=== PATIENT | female | born 1960 | race Caucasian/White ===

== ENCOUNTER 2016-06-12 10:40 | Outpatient (CLI) | payer BC | END 2016-06-12 10:41 | disposition home or self-care (01) | LOC: NAVSJIPCSP 10:40 | PROVIDERS: ATTEND Internal Medicine | DX: E11.9 Type 2 diabetes mellitus without complications (principal); E78.5 Hyperlipidemia, unspecified; Z79.899 Other long term (current) drug therapy | CPT/HCPCS: 36415; 80061; 83036 ==

== ENCOUNTER 2016-09-05 08:23 | Outpatient (CLI) | payer BC ==
[2016-09-05 12:35] LABS: #Basophils 0.1 thou/uL (0.0-0.2); #Eosinphils 0.1 thou/uL (0.0-0.7); #Lymphocytes 2.9 thou/uL (1.20-3.40); #Monocytes 0.5 thou/uL (0.11-0.59); #Neutrophils 5.1 thou/uL (1.40-6.50); %Eosinophils 1.3 % (0.0-10.0); %Lymphocytes 33.6 % (21.0-51.0); %Monocytes 5.7 % (0.0-10.0); %Neutrophils 58.5 % (42.0-75.0); Hemoglobin 11.4 g/dL (12.0-16.0); Mean Corpuscular HGB CONC 32.4 g/dL (32.0-36.0); Mean Corpuscular Hemoglobin 26.3 pg (27.0-31.0); Mean Corpuscular Volume 81.1 fl (81.0-99.0); Mean Platelet Volume 6.5 fL (7.4-10.4); Platelet Count 280 thou/uL (130-400); RBC Distribution Width 13.4 % (11.5-14.5); Red Blood Cell (RBC) Count 4.33 mill/uL (4.20-5.40); White Blood Cell (WBC) Count 8.6 thou/uL (4.8-10.8)
[2016-09-05 12:58] LABS: ALT (SGPT) 22 U/L (0-55); AST (SGOT) 19 U/L (5-34); Albumin 3.9 g/dL (3.5-5.0); Alkaline Phosphatase 45 U/L (40-150); Anion Gap 14 mmol/L (10-20); BUN (Urea Nitrogen) 15 mg/dL (9.8-20.1); Bilirubin, Total 0.4 mg/dL (0.2-1.2); Calc. Creatinine Clearance 0 mL/min (70-130); Carbon Dioxide 27 mmol/L (22-29); Cardiac Risk 3.2 (Less than 4.5); Chloride 104 mmol/L (98-107); Cholesterol 120 mg/dL (< 200 Desired); Estimated GFR-MDRD 52; Globulin 2.7 g/dL (2.4-3.5); Glucose 104 mg/dL (70-105); HDL Cholesterol 37 mg/dL (>60 Neg Risk); LDL Cholesterol, Calculated 63 mg/dL; Potassium 4.3 mmol/L (3.5-5.1); Protein, Total 6.6 g/dL (6.0-8.3); Sodium 141 mmol/L (136-145); Triglycerides 102 mg/dL (Less than 150)
[2016-09-05 13:01] LABS: Bilirubin Negative (Negative); Blood, Urine Negative (Negative); Clarity Cloudy (Clear); Glucose, Urine (Dipstick) Negative (Negative); Leukocyte Negative (Negative); Nitrite Negative (Negative); Protein, Urine (Dipstick) Negative (Neg-Trace); pH, Urine 5.5 (5.0-9.0)
[2016-09-05 13:24] LABS: Specific Gravity, Urine 1.026 (1.002-1.036)
[2016-09-05 13:41] LABS: Hemoglobin A1c 7.6 % (4.0-6.0)
[2016-09-05 19:18] LABS: Creatinine, Urine 275.89 mg/dL (47-110); Microalbumin Urine 2.2 mg/dL (0.5-50.0)
== END 2016-09-05 08:24 ==
LOC: NAVSJIPCSP 08:23
PROVIDERS: ATTEND Internal Medicine
DX: E78.5 Hyperlipidemia, unspecified (principal); I11.9 Hypertensive heart disease without heart failure; E11.9 Type 2 diabetes mellitus without complications; Z79.899 Other long term (current) drug therapy
CPT/HCPCS: 36415; 80053; 80061; 81003; 82043; 83036; 85025

== ENCOUNTER 2016-11-26 08:03 | Outpatient (CLI) | payer BC ==
[2016-11-26 12:46] LABS: #Basophils 0.1 thou/uL (0.0-0.2); #Eosinphils 0.1 thou/uL (0.0-0.7); #Lymphocytes 2.5 thou/uL (1.20-3.40); #Monocytes 0.4 thou/uL (0.11-0.59); #Neutrophils 5.7 thou/uL (1.40-6.50); %Basophils 0.9 % (0.0-1.0); %Eosinophils 0.7 % (0.0-10.0); %Lymphocytes 28.8 % (21.0-51.0); %Neutrophils 64.6 % (42.0-75.0); Hemoglobin 11.1 g/dL (12.0-16.0); Mean Corpuscular HGB CONC 31.4 g/dL (32.0-36.0); Mean Corpuscular Hemoglobin 24.8 pg (27.0-31.0); Mean Corpuscular Volume 78.9 fl (81.0-99.0); Mean Platelet Volume 6.6 fL (7.4-10.4); Platelet Count 351 thou/uL (130-400); RBC Distribution Width 14.7 % (11.5-14.5); Red Blood Cell (RBC) Count 4.46 mill/uL (4.20-5.40); White Blood Cell (WBC) Count 8.8 thou/uL (4.8-10.8)
[2016-11-26 12:59] LABS: Cardiac Risk 4.1 (Less than 4.5)
== END 2016-11-26 08:04 | disposition home or self-care (01) ==
LOC: NAVSJIPCSP 08:03
PROVIDERS: ATTEND Internal Medicine
DX: E78.5 Hyperlipidemia, unspecified (principal); E11.9 Type 2 diabetes mellitus without complications; D64.9 Anemia, unspecified; Z79.899 Other long term (current) drug therapy
CPT/HCPCS: 36415; 80061; 83036; 85025

== ENCOUNTER 2016-12-17 17:45 | Outpatient (CLI) | payer BC | END 2016-12-17 17:46 | disposition home or self-care (01) | LOC: NAV LABSP 17:45 | PROVIDERS: ATTEND Otolaryngology Facial Plastic Surgery | DX: J34.0 Abscess, furuncle and carbuncle of nose (principal) | CPT/HCPCS: 82164; 86160; 86225; 86235; 86376 ==